=== PATIENT | male | born 1955 | race Caucasian/White ===

== ENCOUNTER 2021-12-29 06:41 | Day surgery (SDC) | payer OTHER ==
[~2021-12-29] VITALS: Ht 172.7 cm; Wt 83.9 kg
[2021-12-29] MEDS ORDERED: MIDAZOLAM HCL 5 MG/5 ML VIAL ONE (07:14)
[2021-12-29] MEDS ORDERED: fentaNYL CITRATE/PF 100 MCG/2 ML AMP ONE (07:14)
[2021-12-29] MEDS ORDERED: ONDANSETRON HCL 4 MG/2 ML VIAL ONE (09:55)
[2021-12-29] MEDS ORDERED: MEPERIDINE 100 MG INJ. 100 MG/ML VIAL ONE (09:55)
[2021-12-29 11:45] VITALS: BP_SYST 141
== END 2021-12-29 11:36 | disposition home or self-care (01) ==
LOC: SDS 06:41 → SMU 06:42 → SDS 11:36
PROVIDERS: ATTEND Internal Medicine
DX: Z12.11 Encounter for screening for malignant neoplasm of colon (principal); D12.2 Benign neoplasm of ascending colon; K64.9 Unspecified hemorrhoids; K62.89 Other specified diseases of anus and rectum; Z20.822 Contact with and (suspected) exposure to COVID-19; Z79.899 Other long term (current) drug therapy
CPT/HCPCS: 36415 ×2; 45385; 87426; 88305; 99152; G0378; J2175; J2250; U0003; 45378; 45384; J2405; J3010